=== PATIENT | female | born 1945 | race Caucasian/White ===

== ENCOUNTER 2025-02-16 16:45 | Emergency (ER) | payer MEDICARE, OTHER ==
[~2025-02-16] VITALS: Ht 165.1 cm; Wt 61.7 kg
[2025-02-16 16:52] VITALS: PULSE 68; RESP 16; TEMP 98.8
[2025-02-16 19:52] VITALS: BP 136/41; PULSE 70; RESP 18; O2SAT 98
== END 2025-02-16 19:53 | disposition home or self-care (01) ==
LOC: ER 19:22
DX: M25.571 Pain in right ankle and joints of right foot (principal); S93.491A Sprain of other ligament of right ankle, initial encounter; X50.1XXA Overexertion from prolonged static or awkward postures, initial encounter; Y92.89 Other specified places as the place of occurrence of the external cause; I10 Essential (primary) hypertension; E11.9 Type 2 diabetes mellitus without complications; F17.210 Nicotine dependence, cigarettes, uncomplicated
CPT/HCPCS: 99282